=== PATIENT | female | born 1975 | race Caucasian/White ===

== ENCOUNTER 2017-01-27 00:19 | Emergency (ER) | payer BC ==
[~2017-01-27] VITALS: Ht 160 cm; Wt 64.8 kg
[2017-01-27 01:01] LABS: HEMATOCRIT 39.6 % (36.0-46.0); MCH 31.6 PG (29.0-34.0); MCHC 33.8 G/DL (30.0-36.0); MCV 93.4 FL (83-99); MEAN PLAT.VOLUME 9.8 uM^3 (9.5-12.4); PLATELET COUNT 306 K/uL (156-360); RBC DIS.WIDTH-CV 14.7 % (11.8-14.6); RBC DIS.WIDTH-SD 50.2 % (39-53); RED BLOOD COUNT 4.24 M/uL (3.80-5.20); WHITE BLOOD COUNT 13.2 K/uL (4.1-10.2)
[2017-01-27 01:11] LABS: D-DIMER ELISA < 150.00 ng/mLDDU (<230)
[2017-01-27 01:21] LABS: CHLORIDE 104 mEq/L (99-109); SODIUM 140 mEq/L (136-147)
[2017-01-27 01:23] LABS: GLUCOSE 101 mg/dL (70-99)
[2017-01-27 01:24] LABS: ANION GAP 10 MEQ/L (2-14)
[2017-01-27 01:25] LABS: TOTAL BILIRUBIN 0.5 mg/dL (0.0-1.0)
[2017-01-27 01:27] LABS: ALKALINE PHOSPHATASE 150 IU/L (3-129); GFR ESTIMATE (CALCULATED) > 59 mL/min/
[2017-01-27 01:28] LABS: DIRECT BILIRUBIN 0.3 mg/dL (0.0-0.3); TROP-I INTERPRETATION NEGATIVE; TROPONIN-I < 0.01 ng/mL (0.0-0.30); UREA NITROGEN (BUN) 7 mg/dL (9-23)
[2017-01-27 01:30] LABS: LIPASE 29 U/L (1.0-51.0)
[2017-01-27 03:51] LABS: TROP-I INTERPRETATION NEGATIVE; TROPONIN-I < 0.01 ng/mL (0.0-0.30)
[2017-01-27] MEDS ORDERED: ZOFRAN4 MG PO (03:52)
[2017-01-27] MEDS ORDERED: ULTRAM50 MG PO (03:52)
[2017-01-27 04:09] VITALS: BP 105/75
== END 2017-01-27 04:13 | disposition home or self-care (01) ==
LOC: EME 00:19
PROVIDERS: Emergency Medicine
DX: K80.70 Calculus of gallbladder and bile duct without cholecystitis without obstruction (principal); I45.10 Unspecified right bundle-branch block; F17.200 Nicotine dependence, unspecified, uncomplicated
CPT/HCPCS: 71020; 76705; 80048; 80076; 83690; 84484; 85027; 85379; 93005; 99281; 99284